=== PATIENT | female | born 1990 | race Caucasian/White ===

== ENCOUNTER 2016-10-31 16:18 | Inpatient (IN) | payer MEDICAID ==
[~2016-10-31] VITALS: Ht 149.9 cm; Wt 65.5 kg
[~2016-10-31 16:18] MED LIST: FERROUS SU325 MG/TAB PO; IBU800 M1 PO; NO HOME MEDICATIONS; PERCOCET 325 MG1 TA2 PO; PREDNISONE20 MG PO; PRENATAL VITAMI1 TA5 PO; TAMIFLU 75MG75 MG PO; VENTOLIN0.09 MG IH; ZOFRAN ODT4 MG PO
[2016-11-16] VITALS (18 sets, daily range): BP systolic 75–108; BP diastolic 45–69; PULSE 62–93; TEMP 97.4–98.1
[2016-11-16] MEDS ORDERED: PRENATAL MVI (10:37)
[2016-11-16 12:45] LABS: BASO % 0.3 % (0.0-2.0); EOS # 0.1 (0.0-0.7); EOS % 0.7 % (0-4.0); GRAN # 7.7 (1.4-6.5); GRAN % 75.5 % (42.2-75.2); LYMPH # 1.6 (1.2-3.4); LYMPH % 16.1 % (20.0-51.0); MEAN CELL VOLUME 85 fl (80.0-100.0); MEAN CORPUSCULAR HGB CONC 33 g/dl (33.0-37.0); MEAN PLATELET VOLUME 10.1 fl (7.4-10.4); MONO # 0.7 (0.1-0.6); MONO % 6.8 % (1.7-9.3); PLATELET COUNT 229 K/mm3 (130-400); RED BLOOD COUNT 3.71 M/mm3 (4.10-5.30); REDCELL DISTRIBUTION WIDTH-CV 13.9 % (11.5-14.5); WHITE BLOOD COUNT 10.2 K/mm3 (4.8-10.8)
[2016-11-16 12:51] LABS: HEMATOCRIT 31.5 % (37.0-47.0); HEMOGLOBIN 10.5 g/dl (12.5-16.0); MEAN CORPUSCULAR HEMOGLOBIN 28 pg (27.0-31.0)
[2016-11-17 05:00] VITALS: BP 95/51; PULSE 62; TEMP 97.7
[2016-11-17 07:15] VITALS: BP 106/60; PULSE 65; TEMP 97.7
[2016-11-17 12:45] VITALS: BP 106/60; PULSE 65; TEMP 97.7
[2016-11-17 17:00] VITALS: BP 110/59; PULSE 86; TEMP 97.6
[2016-11-17 21:30] VITALS: BP 102/65; PULSE 98; TEMP 97.6
[2016-11-18 08:15] VITALS: BP 102/54; PULSE 80; TEMP 97.2
[2016-11-18] MEDS ORDERED: IBU800 M1 PO (09:38)
[2016-11-18] MEDS ORDERED: NORCO 325 MG-7.1 TAB PO (09:39)
== END 2016-11-18 12:15 | disposition home or self-care (01) | DRG 765 ==
LOC: OB 11-16 11:38 → LDR 11-16 15:45 → OB 11-18 12:15 → EDSTATUS 11-23 15:43 → LDRO 11-23 16:16
PROVIDERS: Obstetrics & Gynecology
PROC: 10D00Z1 Extraction of Products of Conception, Low, Open Approach (ICD-10-PCS; principal; 2016-11-16)
DX: O34.211 Maternal care for low transverse scar from previous cesarean delivery (principal); O72.1 Other immediate postpartum hemorrhage; N85.8 Other specified noninflammatory disorders of uterus; O99.333 Smoking (tobacco) complicating pregnancy, third trimester; F17.210 Nicotine dependence, cigarettes, uncomplicated; O99.013 Anemia complicating pregnancy, third trimester; D64.9 Anemia, unspecified; Z3A.39 39 weeks gestation of pregnancy; Z37.0 Single live birth
CPT/HCPCS: J0690; J1885; J2210; J2270; J2370; J2405; J2590; J2765; J7120

== ENCOUNTER 2017-07-04 09:29 | Emergency (ER) | payer MEDICAID ==
[~2017-07-04] VITALS: Ht 152.4 cm; Wt 54.5 kg
[~2017-07-04 09:29] MED LIST changes: +NORCO 325 MG-7.1 TAB PO; +PRENATAL MVI
[2017-07-04 09:31] VITALS: BP 119/66; TEMP 99.2
[2017-07-04] MEDS ORDERED: PEN-VEE K500 MG PO (09:59)
[2017-07-04] MEDS ORDERED: NORCO 325 MG-51 TAB PO (09:59)
[2017-07-04 10:54] VITALS: PULSE 98
== END 2017-07-04 10:55 | disposition home or self-care (01) ==
LOC: COL.ER 09:29
DX: K05.30 Chronic periodontitis, unspecified (principal); K02.9 Dental caries, unspecified; F17.210 Nicotine dependence, cigarettes, uncomplicated

== ENCOUNTER → 2017-12-27 | Emergency (ER) | payer MEDICAID ==
[~2017-12-27] VITALS: Ht 152.4 cm; Wt 54.5 kg
[~2017-12-27] MED LIST changes: +NORCO 325 MG-51 TAB PO; +PEN-VEE K500 MG PO
[2017-12-27 15:05] VITALS: BP 109/68; PULSE 79; TEMP 98.4
== END ==
LOC: COL.ER 15:01
DX: H57.11 Ocular pain, right eye (principal)

== ENCOUNTER 2019-07-03 07:38 | Emergency (ER) | payer SELFPAY ==
[~2019-07-03] VITALS: Ht 149.9 cm; Wt 56.8 kg
[2019-07-03 07:46] VITALS: TEMP 97.1
[2019-07-03] MEDS ORDERED: AMOXICILLIN 50500 MG PO (08:45)
[2019-07-03 08:54] VITALS: BP 117/64; PULSE 81
== END 2019-07-03 08:54 | disposition home or self-care (01) ==
LOC: COL.ER 07:38
DX: K02.9 Dental caries, unspecified (principal); F17.210 Nicotine dependence, cigarettes, uncomplicated; Z98.890 Other specified postprocedural states

== ENCOUNTER 2022-07-29 01:23 | Emergency (ER) | payer MEDICAID ==
[~2022-07-29 01:23] MED LIST changes: +AMOXICILLIN 50500 MG PO
[2022-07-29 01:31] VITALS: TEMP 98.5
[2022-07-29 02:03] LABS: COLLECTION METHOD CLEAN CATCH
[2022-07-29 02:12] LABS: BASO % 0.5 % (0.0-2.0); EOS # 0.1 K/mm3 (0.0-0.7); GRAN # 5.5 K/mm3 (1.4-6.5); GRAN % 69.9 % (42.2-75.2); HEMATOCRIT 40.5 % (37.0-47.0); HEMOGLOBIN 12.9 g/dl (12.5-16.0); LYMPH # 1.8 K/mm3 (1.2-3.4); LYMPH % 22.6 % (20.0-51.0); MEAN CELL VOLUME 87 fl (80.0-100.0); MEAN CORPUSCULAR HEMOGLOBIN 28 pg (27-31); MEAN CORPUSCULAR HGB CONC 32 g/dl (33.0-37.0); MEAN PLATELET VOLUME 9.1 fl (7.4-10.4); MONO # 0.5 K/mm3 (0.1-0.6); MONO % 5.7 % (1.7-9.3); PLATELET COUNT 328 K/mm3 (130-400); RED BLOOD COUNT 4.64 M/mm3 (4.10-5.30); REDCELL DISTRIBUTION WIDTH-CV 12.2 % (11.5-14.5)
[2022-07-29 02:13] LABS: MUCOUS Present (NOT PRESENT); SQUAMOUS EPITHELIAL 0-2 /hpf (0-10); URINE BACTERIA None Seen /hpf (NONE SEEN); URINE RBC 0-2 /hpf (0-2)
[2022-07-29 02:14] LABS: PH 5.5 (5.0-8.5); URINE APPEARANCE Clear (CLEAR/HAZY); URINE BLOOD TRACE-INTACT (NEGATIVE); URINE COLOR Yellow (YELLOW); URINE GLUCOSE Negative (NEGATIVE); URINE KETONE TRACE (NEGATIVE); URINE NITRATE Negative (NEGATIVE); URINE PROTEIN(semi-quant) Negative (NEGATIVE); URINE UROBILINOGEN 0.2 E.U/dL (0.2-1.0)
[2022-07-29 02:18] LABS: TRICYCLIC ANTIDEPRESS URINE NEGATIVE
[2022-07-29 02:31] LABS: ALBUMIN 3.9 gm/dL (3.5-5.0); BILIRUBIN,TOTAL 0.2 mg/dL (0.2-1.2); CALCIUM 8.7 mg/dL (8.4-10.2); CREATININE, serum 0.7 mg/dL (0.57-1.11); POTASSIUM 3.5 mmol/L (3.5-4.5); TOTAL PROTEIN 7.8 gm/dL (6.2-8.1)
[2022-07-29 03:35] VITALS: BP 103/69; PULSE 79
== END 2022-07-29 03:37 | disposition home or self-care (01) ==
LOC: COL.ER 01:23
PROVIDERS: Nurse Practitioner
DX: F10.229 Alcohol dependence with intoxication, unspecified (principal); Y90.7 Blood alcohol level of 200-239 mg/100 ml; Z28.310 Unvaccinated for COVID-19
CPT/HCPCS: J7030

== ENCOUNTER 2023-05-17 16:38 | Emergency (ER) | payer MEDICAID ==
[~2023-05-17] VITALS: Ht 149.9 cm; Wt 61.4 kg
[2023-05-17 16:47] VITALS: TEMP 98.2
[2023-05-17] MEDS ORDERED: NORCO 325 MG-51 TAB PO (18:22)
[2023-05-17] MEDS ORDERED: BACTRIM DS 8001 TAB PO (18:22)
[2023-05-17 18:40] VITALS: BP 111/66; PULSE 83
== END 2023-05-17 18:40 | disposition home or self-care (01) ==
LOC: COL.ER 16:38
DX: L02.414 Cutaneous abscess of left upper limb (principal)